=== PATIENT | female | born 1935 | race Caucasian/White ===

== ENCOUNTER 2019-03-06 15:25 | Inpatient (IN) | payer OTHER, MEDICARE ==
[~2019-03-06] VITALS: Ht 170.2 cm; Wt 61.5 kg
[2019-03-06] MEDS ORDERED: ELIQUIS5 MG PO (15:55)
[2019-03-06] MEDS ORDERED: IMVEXXY10 MCG VAG (15:55)
[2019-03-06] MEDS ORDERED: NITR.4SL SL (15:56)
[2019-03-06 15:57] LABS: BASOPHILS ABSOLUTE AUTO 0.09 K/mm3 (0.00-0.23); BASOPHILS PERCENT AUTO 2 % (0-2); EOSINOPHILS ABSOLUTE AUTO 0.46 K/mm3 (0.00-0.68); EOSINOPHILS PERCENT AUTO 9 % (0-6); Hematocrit 41.1 % (33.0-51.0); Hemoglobin 13.2 g/dL (11.5-16.0); IMMATURE GRAN ABSOLUTE AUTO 0.01 K/mm3 (0.00-0.10); IMMATURE GRAN PERCENT AUTO 0 % (0-1); LYMPHOCYTES ABSOLUTE AUTO 1.63 K/mm3 (0.84-5.20); LYMPHOCYTES PERCENT AUTO 32 % (21-46); MONOCYTES ABSOLUTE AUTO 0.72 K/mm3 (0.16-1.47); MONOCYTES PERCENT AUTO 14 % (4-13); Mean Corpuscular HGB 30.3 pg (26.0-34.0); Mean Corpuscular HGB Conc 32.1 g/dL (31.5-36.5); Mean Corpuscular Volume 94 fL (80-100); Mean Platelet Volume 10.8 fL (9.1-12.4); NEUTROPHILS ABSOLUTE AUTO 2.14 K/mm3 (1.96-9.15); NEUTROPHILS PERCENT AUTO 42 % (41-73); Platelet Count 178 K/mm3 (150-400); RDW Coefficient Variation 12.7 % (11.7-14.2); RDW Standard Deviation 44.2 fL (35.1-46.3); Red Blood Cell Count 4.36 M/mm3 (3.80-5.20); White Blood Cell Count 5.05 K/mm3 (4.00-11.30)
[2019-03-06] MEDS ORDERED: Tambocor100 MG PO (16:04)
[2019-03-06] MEDS ORDERED: Calan Sr120 MG PO (16:06)
[2019-03-06 16:11] LABS: Alanine Aminotransfer (ALT/SGP 50 U/L (12-78); Albumin/Globulin Ratio 1.2 (0.8-1.8); Alk Phos 102 U/L (50-136); Anion Gap 7 mmol/L (6-16); Aspartate Aminotrans (AST/SGOT 44 U/L (12-37); Blood Urea Nitrogen 18 mg/dL (8-24); CO2, Blood 27 mmol/L (21-32); Calcium, Blood 9.7 mg/dL (8.5-10.1); Chloride, Blood 106 mmol/L (98-108); Creatinine, Blood 0.69 mg/dL (0.40-1.00); Globulin, Blood 3.4 g/dL (2.2-4.0); Glomerular Filtration Rate >60 (60-); Glucose, Blood 101 mg/dL (70-99); Potassium, Blood 3.5 mmol/L (3.5-5.5); Sodium, Blood 140 mmol/L (136-145); Total Protein, Blood 7.4 g/dL (6.4-8.2); Troponin I <0.015 ng/mL (0.000-0.040)
--- NOTE | 2019-03-06 19:35 | NUR ---
PT GAVE PERMISSION TO PROVIDE CARE ON 03/06/2019.
--- NOTE | 2019-03-06 22:53 | NUR ---
ADMIT NOTE RECEIVED HANDOFF FROM ER NURSE TONA. PT TRANSFERED TO MEDICAL FLOOR VIA GURNEY. PT ORIENTED TO UNIT. CALL BUTTON WITHIN REACH. TELEMETRY PLACE: AFIB @ 57 BPM. PT WILL BE NPO @ MIDNIGHT FOR A STRESS TEST TOMORROW. PT DENIES PAIN AT THIS TIME, STATES SHE FEELS INDIGESTION.
[2019-03-07 00:47] LABS: Anion Gap 5 mmol/L (6-16); Blood Urea Nitrogen 20 mg/dL (8-24); CHOL/HDL RATIO 2.6; CO2, Blood 30 mmol/L (21-32); Calcium, Blood 9.4 mg/dL (8.5-10.1); Chloride, Blood 107 mmol/L (98-108); Cholesterol 127 mg/dL (50-200); Glomerular Filtration Rate >60 (60-); Glucose, Blood 93 mg/dL (70-99); HDL Cholesterol 48 mg/dL (>39); LDL/HDL RATIO 1.3; Low Density Lipoprotein Chol 60 mg/dL (0-110); Magnesium, Blood 1.9 mg/dL (1.6-2.4); Potassium, Blood 3.9 mmol/L (3.5-5.5); Sodium, Blood 142 mmol/L (136-145); Triglycerides 95 mg/dL (30-160); Very Low Density Lipoprot Chol 19 mg/dL (6-32)
--- NOTE | 2019-03-07 04:26 | NUR ---
FULL FASHIONED GARMENT KNITTER CALLED ME FULL FASHIONED GARMENT KNITTER CALLED TO SAY THAT THE COMBINATION OF EVIDENCE HAS LED HER TO BELIEVE WE SHOULD INVESTIGATE/TREAT FOR A POSSIBLE NSTEMI. HEPARIN BOLUS AND DRIP HAS BEGUN. MEDS GIVEN ACCORDING TO EMAR. CARDIOLOGY ANSWERING SERVICE CALLED FOR CONSULT FOR THIS PT.
--- NOTE | 2019-03-07 05:13 | NUR ---
SHIFT SUMMARY ADMIT FOR CHEST PAIN, NOW FELT TO BE NSTEMI. LIMITED CODE: CPR AND DEFIB OK, NO INTUBATION. NPO SINCE MIDNIGHT (EXCEPT TELEPHONE ORDER FOR CARDIAC MEDS, SEE EMAR). PT WAS GIVEN HEPARING BOLLUS AND IS NOW ON HEPARIN DRIP. MAGNIESIUM IS INFUSING IN A SEPARATE IV. DAILY STANDING WT'S ORDERED. TROPONIN WAS 0.086 ON ADMIT. TELEMETRY IS MONITORING: AFIB @ 60 BPM. ONE 3 SECOND PAUSE RECORDED THIS SHIFT W/AFIB @ 42 BPM. CHARGE NURSE AND HOSPITALIST INFORMED. DIRECTOR MEDICAL ECONOMICS SUGGESTS PT MAY GO TO MEDICAL RECRUITER TODAY. CARDIOLOGY CONSULT CALLED TO ANSWERING SERVICE. PT ON RA, A&O X4. DENIES CHEST PAIN, STATES IT FEELS LIKE INDIGESTION.
[2019-03-07 11:06] LABS: International Normalized Ratio 1.11; Prothrombin Time Results 11.8 Sec (9.7-11.5)
--- NOTE | 2019-03-07 12:06 | NUR ---
1204 PT TAKEN DOWN TO DIRECTOR RECREATION VIA WHEELCHAIR.
--- NOTE | 2019-03-07 12:54 | NUR ---
1250 CALLED SHERITA IN PCU AND GAVE REPORT
--- NOTE | 2019-03-07 14:44 | NUR ---
PT ARRIVES FROM RN CONCURRENT REVIEW POST STENT PLACEMENT X6. PT C/O SOME MILD CHEST DISCOMFORT WHICH HAS IMPROVED. RT BAND IN PACE TO RT RADIAL WITH NO ACTIVE BLEEDING, NOTED, PULSES PRESENT. NOW WITH COMPLAINTS OF NAUSEA.
--- NOTE | 2019-03-07 15:01 | NUR ---
PT NAUSEA HAS NOW RESOLVED WITH ZOFRAN ADMIN. PT SITTING UP EATING LUNCH
--- NOTE | 2019-03-07 17:24 | NUR ---
SHIFT NOTE PT ARRIVED FROM [facility] AROUND 1430 TODAY. PT ALERT, REPORTS CP HAD RESOLVED, DID REPORT SOME NAUSEA THAT WAS QUICKLY RESOLVED WITH ZOFRAN THEN PT WAS ABLE TO EAT A SNACK STS "MORPHINE JUST DON'T AGREE WITH ME IS ALL" PT A/O X4, LAUGHING AND JOKING. VITALS HAVE BEEN STABLE T/O THE SHIFT. TR BAND IS IN PLACE WITH REPORTED 9ML OF AIR IN TR BAND, AIR HAS NOT BEEN REMOVED OF THER TIME OF THIS NOTE. NO ACTIVE BLEEDING FROM TR BAND SITE. PULSES ARE FAINT BUT PRESENT
--- NOTE | 2019-03-07 18:27 | NUR ---
PT WITH HR AT 36, THIS RN TO ROOM PT ASYMPTOMATIC DURING EVENT. VSS. 0.5MG ATROPINE ADMINISTERED IVP HR QUICKLY RETURNED TO 55. PT REMAINS ALERT AND ANSWERING QUESTIONS. 1ML AIR REMOVED FROM TR BAND AT THIS TIME. NO BLEEDING POST REMOVAL OF AIR. PULSES REMAIN INTACT
--- NOTE | 2019-03-07 19:50 | NUR ---
ASSUMED CARE BEDSIDE REPORT RECIEVED. PT IS LAYING IN BED, AWAKE, ALERT, AND ORIENTED. PT DENIES CHEST PAIN OR NAUSEA AT THIS TIME. VSS WITH HR 40-50'S. PT ON ROOM AIR. TR BAND IN PLACE TO RIGHT RADIAL ACCESS SITE WITH ARMBOARD IN PLACE. 1CC AIR REMOVED AT THIS TIME. SITE IS SOFT, NONTENDER, NO HEMATOMA, DISTAL PULSES PRESENT. IV'S SALINE LOCKED. WILL CONTINUE TO MONITOR.
--- NOTE | 2019-03-08 05:41 | NUR ---
SHIFT SUMMARY NO ACUTE CHANGES THIS SHIFT. PT HAS SLEPT WELL THROUGHOUT THE NIGHT. WHEN AWAKE PT IS ALERT AND ORIENTED. PT HAS DENIED CHEST PAIN OR NAUSEA THROUGHOUT THE SHIFT. VSS. PT ON ROOM AIR. RIGHT RADIAL ACCESS SITE IS C/D/I WITH OPSITE AND ARMBOARD IN PLACE. IV'S SALINE LOCKED. WILL CONTINUE TO MONITOR AND REPORT OFF TO ONCOMING RN.
[2019-03-08 08:51] LABS: BASOPHILS ABSOLUTE AUTO 0.03 K/mm3 (0.00-0.23); BASOPHILS PERCENT AUTO 0 % (0-2); EOSINOPHILS ABSOLUTE AUTO 0.22 K/mm3 (0.00-0.68); EOSINOPHILS PERCENT AUTO 2 % (0-6); Hematocrit 40.6 % (33.0-51.0); Hemoglobin 12.8 g/dL (11.5-16.0); IMMATURE GRAN ABSOLUTE AUTO 0.03 K/mm3 (0.00-0.10); IMMATURE GRAN PERCENT AUTO 0 % (0-1); LYMPHOCYTES ABSOLUTE AUTO 1.26 K/mm3 (0.84-5.20); LYMPHOCYTES PERCENT AUTO 14 % (21-46); MONOCYTES ABSOLUTE AUTO 1.12 K/mm3 (0.16-1.47); MONOCYTES PERCENT AUTO 12 % (4-13); Mean Corpuscular HGB 30.4 pg (26.0-34.0); Mean Corpuscular HGB Conc 31.5 g/dL (31.5-36.5); Mean Corpuscular Volume 96 fL (80-100); NEUTROPHILS ABSOLUTE AUTO 6.45 K/mm3 (1.96-9.15); NEUTROPHILS PERCENT AUTO 71 % (41-73); Platelet Count 178 K/mm3 (150-400); RDW Coefficient Variation 13.2 % (11.7-14.2); RDW Standard Deviation 47.5 fL (35.1-46.3); Red Blood Cell Count 4.21 M/mm3 (3.80-5.20); White Blood Cell Count 9.11 K/mm3 (4.00-11.30)
[2019-03-08 09:13] LABS: Alanine Aminotransfer (ALT/SGP 38 U/L (12-78); Albumin, Blood 3.4 g/dL (3.4-5.0); Albumin/Globulin Ratio 1.1 (0.8-1.8); Alk Phos 85 U/L (50-136); Anion Gap 7 mmol/L (6-16); Aspartate Aminotrans (AST/SGOT 44 U/L (12-37); Bilirubin, Total 1.3 mg/dL (0.1-1.0); Blood Urea Nitrogen 16 mg/dL (8-24); Bun/Creatinine Ratio 20.7 (12.0-20.0); CO2, Blood 23 mmol/L (21-32); Calcium, Blood 8.6 mg/dL (8.5-10.1); Chloride, Blood 109 mmol/L (98-108); Creatinine, Blood 0.77 mg/dL (0.40-1.00); Globulin, Blood 3.2 g/dL (2.2-4.0); Glomerular Filtration Rate >60 (60-); Glucose, Blood 99 mg/dL (70-99); Magnesium, Blood 1.9 mg/dL (1.6-2.4); Potassium, Blood 4.1 mmol/L (3.5-5.5); Sodium, Blood 139 mmol/L (136-145); Total Protein, Blood 6.6 g/dL (6.4-8.2)
[2019-03-08] MEDS ORDERED: ACET325 PO (10:53)
[2019-03-08] MEDS ORDERED: Aspir 8181 MG PO (10:53)
[2019-03-08] MEDS ORDERED: CLOP75 PO (10:54)
[2019-03-08] MEDS ORDERED: BISA10S PR (10:54)
[2019-03-08] MEDS ORDERED: ATOR80 PO (10:54)
[2019-03-08] MEDS ORDERED: NITR.4SL SL (10:54)
[2019-03-08] MEDS ORDERED: ONDA4ODT (10:55)
[2019-03-08] MEDS ORDERED: SENN187 PO (10:55)
[2019-03-08] MEDS ORDERED: PANT40 PO (10:55)
--- NOTE | 2019-03-08 11:31 | NUR ---
AFTER EXTENSIVE EDUCATION OF DC INSTRUCTIONS, NEW MEDS AND POTENTIAL SIDE EFFECTS PT EXPRESSED UNDERSTANDING OF DC TEACHING. PT PROIVDED WITH D/C TEACHING, AND ALL BELONGINGS.
--- NOTE | 2019-03-08 16:12 | NUR ---
Call to pt at home; she states that she has a 3 month supply of eliquis at home.
== END 2019-03-08 11:30 | disposition home or self-care (01) | DRG 246 ==
LOC: ER 15:25 → MEDS 15:26 → PCU 03-07 14:32
PROVIDERS: Emergency Medicine; Nurse Practitioner Acute Care; ADMIT Family Medicine
PROC: 4A023N7 Measurement of Cardiac Sampling and Pressure, Left Heart, Percutaneous Approach (ICD-10-PCS; principal; 2019-03-08)
PROC: 027337Z Dilation of Coronary Artery, Four or More Arteries with Four or More Drug-eluting Intraluminal Devices, Percutaneous Approach (ICD-10-PCS; 2019-03-08)
PROC: B211YZZ Fluoroscopy of Multiple Coronary Arteries using Other Contrast (ICD-10-PCS; 2019-03-08)
DX: I25.10 Atherosclerotic heart disease of native coronary artery without angina pectoris (principal); Z98.61 Coronary angioplasty status; K21.9 Gastro-esophageal reflux disease without esophagitis; N95.2 Postmenopausal atrophic vaginitis
CPT/HCPCS: 36415; 71046; 76937; 80048; 80053; 80061; 83690; 83735; 83880; 84484; 85025; 85347; 85610; 85730; 93005; 93010; 93306; 93454; 96361; 96365; 96375; 96376; 99152; 99153; 99285-25; C1725; C1769; C1874; C1887; C1894; C9113; C9600; C9601; G0378; J0461; J1644; J2250; J2405; J3010; J3475; J7030; J7050; Q9967

== ENCOUNTER 2020-09-26 10:05 | Emergency (ER) | payer OTHER ==
[~2020-09-26] VITALS: Ht 170.2 cm; Wt 60.8 kg
[~2020-09-26 10:05] MED LIST: ACET325 PO; ATOR80 PO; Aspir 8181 MG PO; BISA10S PR; CLOP75 PO; Calan Sr120 MG PO; ELIQUIS5 MG PO; IMVEXXY10 MCG VAG; NITR.4SL SL; ONDA4ODT; PANT40 PO; SENN187 PO; Tambocor100 MG PO
[2020-09-26 10:55] LABS: BASOPHILS ABSOLUTE AUTO 0.03 K/mm3 (0.00-0.23); BASOPHILS PERCENT AUTO 1 % (0-2); EOSINOPHILS ABSOLUTE AUTO 0.09 K/mm3 (0.00-0.68); EOSINOPHILS PERCENT AUTO 3 % (0-6); Hematocrit 40.3 % (33.0-51.0); Hemoglobin 13.2 g/dL (11.5-16.0); IMMATURE GRAN ABSOLUTE AUTO 0.02 K/mm3 (0.00-0.10); IMMATURE GRAN PERCENT AUTO 1 % (0-1); LYMPHOCYTES ABSOLUTE AUTO 0.63 K/mm3 (0.84-5.20); LYMPHOCYTES PERCENT AUTO 19 % (21-46); MONOCYTES ABSOLUTE AUTO 0.45 K/mm3 (0.16-1.47); MONOCYTES PERCENT AUTO 14 % (4-13); Mean Corpuscular HGB 31.1 pg (26.0-34.0); Mean Corpuscular HGB Conc 32.8 g/dL (31.5-36.5); Mean Corpuscular Volume 95 fL (80-100); Mean Platelet Volume 11.1 fL (9.1-12.4); NEUTROPHILS ABSOLUTE AUTO 2.11 K/mm3 (1.96-9.15); NEUTROPHILS PERCENT AUTO 63 % (41-73); Platelet Count 166 K/mm3 (150-400); RDW Coefficient Variation 12.6 % (11.7-14.2); RDW Standard Deviation 44.2 fL (35.1-46.3); Red Blood Cell Count 4.24 M/mm3 (3.80-5.20); White Blood Cell Count 3.33 K/mm3 (4.00-11.30)
[2020-09-26 11:11] LABS: Alanine Aminotransfer (ALT/SGP 31 U/L (12-78); Albumin, Blood 3.8 g/dL (3.4-5.0); Albumin/Globulin Ratio 1.1 (0.8-1.8); Alk Phos 107 U/L (50-136); Anion Gap 4 mmol/L (6-16); Aspartate Aminotrans (AST/SGOT 31 U/L (12-37); Bilirubin, Total 0.8 mg/dL (0.1-1.0); Blood Urea Nitrogen 15 mg/dL (8-24); Bun/Creatinine Ratio 18.8 (12.0-20.0); CO2, Blood 30 mmol/L (21-32); Calcium, Blood 9.8 mg/dL (8.5-10.1); Chloride, Blood 105 mmol/L (98-108); Globulin, Blood 3.4 g/dL (2.2-4.0); Glomerular Filtration Rate >60 (60-); Glucose, Blood 117 mg/dL (70-99); Potassium, Blood 3.8 mmol/L (3.5-5.5); Sodium, Blood 139 mmol/L (136-145); Total Protein, Blood 7.2 g/dL (6.4-8.2); Troponin I <0.015 ng/mL (0.000-0.040)
[2020-09-26 12:05] LABS: SARS-Cov-2 (COVID-19) PCR, MMC NEGATIVE (NEGATIVE)
[2020-09-26 13:08] LABS: Base Excess Venous 6.8 mmol/L; Bicarbonate Venous 28.8 mmol/L (24.0-30.0); PCO2 Venous 56.3 mmHg (38-42); PO2 Venous 51.4 mmHg (38-42); pH Blood Venous 7.37 (7.34-7.37)
== END 2020-09-26 15:18 | disposition home or self-care (01) ==
LOC: ER 10:05
PROVIDERS: Emergency Medicine
DX: R55 Syncope and collapse (principal); I48.91 Unspecified atrial fibrillation; K21.9 Gastro-esophageal reflux disease without esophagitis; I10 Essential (primary) hypertension; Z88.0 Allergy status to penicillin; Z79.82 Long term (current) use of aspirin; Z79.899 Other long term (current) drug therapy; Z20.822 Contact with and (suspected) exposure to COVID-19
CPT/HCPCS: 36415; 71045; 71260; 80053; 82803; 84484; 85025; 85379; 93005; 93010; 99285-25; Q9967; U0004

== ENCOUNTER 2021-03-21 18:28 | Emergency (ER) | payer OTHER ==
[~2021-03-21] VITALS: Ht 170.2 cm; Wt 54.4 kg
[2021-03-21 19:24] LABS: BASOPHILS ABSOLUTE AUTO 0.03 K/mm3 (0.00-0.23); BASOPHILS PERCENT AUTO 1 % (0-2); EOSINOPHILS ABSOLUTE AUTO 0.06 K/mm3 (0.00-0.68); EOSINOPHILS PERCENT AUTO 2 % (0-6); Hematocrit 39.5 % (33.0-51.0); Hemoglobin 12.7 g/dL (11.5-16.0); IMMATURE GRAN ABSOLUTE AUTO 0.01 K/mm3 (0.00-0.10); IMMATURE GRAN PERCENT AUTO 0 % (0-1); LYMPHOCYTES ABSOLUTE AUTO 0.67 K/mm3 (0.84-5.20); LYMPHOCYTES PERCENT AUTO 18 % (21-46); MONOCYTES ABSOLUTE AUTO 0.44 K/mm3 (0.16-1.47); MONOCYTES PERCENT AUTO 12 % (4-13); Mean Corpuscular HGB 31.2 pg (26.0-34.0); Mean Corpuscular HGB Conc 32.2 g/dL (31.5-36.5); Mean Corpuscular Volume 97 fL (80-100); Mean Platelet Volume 11.6 fL (9.1-12.4); NEUTROPHILS ABSOLUTE AUTO 2.45 K/mm3 (1.96-9.15); NEUTROPHILS PERCENT AUTO 67 % (41-73); Platelet Count 147 K/mm3 (150-400); RDW Coefficient Variation 12.7 % (11.7-14.2); RDW Standard Deviation 45.3 fL (35.1-46.3); Red Blood Cell Count 4.07 M/mm3 (3.80-5.20); White Blood Cell Count 3.66 K/mm3 (4.00-11.30)
[2021-03-21 19:33] LABS: Alanine Aminotransfer (ALT/SGP 48 U/L (12-78); Albumin/Globulin Ratio 1.3 (0.8-1.8); Alk Phos 112 U/L (50-136); Anion Gap 5 mmol/L (6-16); Aspartate Aminotrans (AST/SGOT 57 U/L (12-37); Bilirubin, Total 0.8 mg/dL (0.1-1.0); Blood Urea Nitrogen 18 mg/dL (8-24); Bun/Creatinine Ratio 22.1 (12.0-20.0); CO2, Blood 31 mmol/L (21-32); Calcium, Blood 9.2 mg/dL (8.5-10.1); Chloride, Blood 101 mmol/L (98-108); Creatinine, Blood 0.82 mg/dL (0.40-1.00); Globulin, Blood 3.1 g/dL (2.2-4.0); Glomerular Filtration Rate >60 (60-); Glucose, Blood 126 mg/dL (70-99); Potassium, Blood 4.2 mmol/L (3.5-5.5); Sodium, Blood 137 mmol/L (136-145); Total Protein, Blood 7.1 g/dL (6.4-8.2)
[2021-03-21 23:01] LABS: Source, Urine Clean Catch
[2021-03-21 23:04] LABS: Bilirubin, Urine Neg (Neg); Blood, Urine 3+ (Neg); Glucose Qualitative, Urine Neg (Neg); Ketones, Urine Neg (Neg); Leukocyte Esterase, Urine 1+ (Neg); Nitrite, Urine Neg (Neg); Protein, Urine 2+ (Neg); Specific Gravity, Urine 1.015 (1.003-1.022); Urobilinogen, Urine NORM (Normal); pH, Urine 6.5 (5.0-8.0)
[2021-03-21 23:06] LABS: Appearance, Urine Hazy (Clear); Color, Urine Yellow (P-Yellow)
[2021-03-21 23:13] LABS: Bacteria Few /hpf; Squamous Epithelial Cells Rare /hpf (Few)
[2021-03-21 23:16] LABS: U Amphetamine Screen Not Detected; U Barbituate Screen Not Detected; U Benzodiazapine Screen Not Detected; U Buprenorphine Screen Not Detected; U Cannabinoids Screen Not Detected; U Cocaine Screen Not Detected; U Methadone Screen Not Detected; U Methamphetamine Screen Not Detected; U Opiates Screen Not Detected; U Oxycodone Screen Not Detected; U Phencyclidine Screen Not Detected; U Propoxyphene Screen Not Detected
== END 2021-03-21 23:30 | disposition home or self-care (01) ==
LOC: ER 18:28
PROVIDERS: Physician Assistant
DX: R41.0 Disorientation, unspecified (principal); Z88.0 Allergy status to penicillin; Z91.013 Allergy to seafood; Z79.899 Other long term (current) drug therapy
CPT/HCPCS: 36415; 70450; 71045; 80053; 81001; 82947; 85025; 87086; 93005; 93010; 99285-25

== ENCOUNTER 2023-03-13 12:00 | Day surgery (SDC) | payer OTHER ==
[~2023-03-13] VITALS: Ht 167.6 cm; Wt 59.9 kg
[~2023-03-13 12:00] MED LIST changes: +AMLO5 PO; +Crestor20 MG PO; +ELIQUIS5 M2 PO; +HYDROCHLOROTH12.5 MG PO; +METO25 PO; +MULTI-VITAMIN1 EAC2 PO; +Prinivil10 MG PO
--- NOTE | 2023-03-13 12:20 | NUR ---
03/13/23 1220 Carissa Wells CALL LIGHT WITHIN REACH. SUL[place] IN AT 1216
[2023-03-13 13:53] VITALS: BP 143/69
== END 2023-03-13 14:13 | disposition home or self-care (01) ==
LOC: ORSCSDS 12:00
PROVIDERS: Student in an Organized Health Care Education/Training Program
PROC: 08RK3JZ Replacement of Left Lens with Synthetic Substitute, Percutaneous Approach (ICD-10-PCS; principal; 2023-03-13 13:45)
DX: H25.12 Age-related nuclear cataract, left eye (principal); H52.202 Unspecified astigmatism, left eye; Z96.1 Presence of intraocular lens; I48.91 Unspecified atrial fibrillation; Z79.01 Long term (current) use of anticoagulants; Z79.899 Other long term (current) drug therapy; Z87.891 Personal history of nicotine dependence
CPT/HCPCS: J2250; J3010; J7040; V2632